=== PATIENT | male | born 1985 | race Caucasian/White ===

== ENCOUNTER 2017-07-22 07:21 | Emergency (ER) | payer OTHER | END 2017-07-22 09:12 | disposition home or self-care (01) | LOC: FTE 07:21 | DX: S02.31XA Fracture of orbital floor, right side, initial encounter for closed fracture (principal); S02.2XXA Fracture of nasal bones, initial encounter for closed fracture; S02.40CA Maxillary fracture, right side, initial encounter for closed fracture; W11.XXXA Fall on and from ladder, initial encounter; Y92.9 Unspecified place or not applicable | CPT/HCPCS: 70450; 70480; 99285-25 ==